=== PATIENT | female | born 1945 | race Two or more races ===

== ENCOUNTER 2016-03-31 14:28 | Emergency (ER) | payer MEDICARE, MEDICAID ==
--- NOTE | 2016-03-31 14:45 | ER Document Report ---
ED Medical Screen (RME) - General Stated Complaint: ARM PAIN Time seen by provider: 14:42 Mode of Arrival: Ambulatory Information source: Patient Notes: 70 yo female presents to ed for pain in the right arm upper arm. she took lavastatin and asa and the pain is gone in upper arm and her right had feels cold. TRAVEL OUTSIDE OF THE [place] IN LAST 30 DAYS: No - HPI Onset: This afternoon Onset/Duration: Sudden, Better Quality of pain: Burning - was a 4 now a 2 Severity: Moderate Pain Level: 2 Associated Symptoms: Other - cold and numbness to right hand Exacerbated by: Denies Relieved by: Denies Similar symptoms previously: No Recently seen / treated by doctor: No - Related Data Smoking: Non-smoker Frequency of alcohol use: Occasional Drug Abuse: None Allergies/Adverse Reactions: No Known Allergies Allergy (Unverified 06/29/12 20:48) Past Medical History - Past Medical History Cardiac Medical History: Reports: Hx Atrial Fibrillation, Hx Hypercholesterolemia GI Medical History: Reports: Hx Hiatal Hernia Past Surgical History: Reports: Hx Hysterectomy - Immunizations Hx Diphtheria, Pertussis, Tetanus Vaccination: Yes Physical Exam - Vital signs Vitals: Temp Pulse Resp BP Pulse Ox 97.4 F 88 18 134/76 H 97 03/31/16 14:38 03/31/16 14:38 03/31/16 14:38 03/31/16 14:38 03/31/16 14:38 Course - Vital Signs Vital signs: Temp Pulse Resp BP Pulse Ox 97.4 F 88 18 134/76 H 97 03/31/16 14:38 03/31/16 14:38 03/31/16 14:38 03/31/16 14:38 03/31/16 14:38
[2016-03-31 15:16] LABS: ABSOLUTE BASOPHILS # (AUTO) 0.1 10^3/uL (0.0-0.2); ABSOLUTE EOSINOPHILS # (AUTO) 0.1 10^3/uL (0.0-0.6); ABSOLUTE LYMPHOCYTES (AUTO) 1.7 10^3/uL (0.5-4.7); ABSOLUTE MONOCYTES (AUTO) 0.7 10^3/uL (0.1-1.4); ABSOLUTE NEUT (AUTO) 5.3 10^3/uL (1.7-8.2); BASOPHILS % (AUTO) 0.7 % (0-2); EOSINOPHILS % (AUTO) 1.1 % (0-6); HEMATOCRIT 44.8 % (36.0-47.0); HEMOGLOBIN 15.4 g/dL (12.0-15.5); HGB HCT DIFFERENCE 1.4; LYMPHOCYTES % (AUTO) 21.8 % (13-45); MEAN CORPUSCULAR HEMOGLOBIN 30.7 pg (27.0-33.4); MEAN CORPUSCULAR HGB CONC 34.4 g/dL (32.0-36.0); MEAN CORPUSCULAR VOLUME 89 fl (80-97); MONOCYTES % (AUTO) 8.5 % (3-13); RED BLOOD COUNT 5.02 10^6/uL (3.72-5.28); RED CELL DISTRIBUTION WIDTH 12.9 % (11.5-14.0); SEGMENTED NEUTROPHILS % (AUTO) 67.9 % (42-78); WHITE BLOOD COUNT 7.8 10^3/uL (4.0-10.5)
[2016-03-31 15:47] LABS: ALANINE AMINOTRANSFERASE 31 U/L (9-52); ALBUMIN 4.8 g/dL (3.5-5.0); ALKALINE PHOSPHATASE 87 U/L (38-126); ANION GAP 12 (5-19); ASPARTATE AMINO TRANSFERASE 29 U/L (14-36); BILIRUBIN,TOTAL 0.9 mg/dL (0.2-1.3); BLOOD UREA NITROGEN 20 mg/dL (7-20); CALCIUM 10.3 mg/dL (8.4-10.2); CARBON DIOXIDE 29 mmol/L (22-30); CHLORIDE 103 mmol/L (98-107); CREATINE KINASE 44 U/L (30-135); CREATININE RESULT 0.79 mg/dL (0.52-1.25); GLUCOSE 100 mg/dL (75-110); POTASSIUM 4.2 mmol/L (3.6-5.0); SODIUM 144.2 mmol/L (137-145); TOTAL PROTEIN 7.4 g/dL (6.3-8.2)
[2016-03-31 15:57] LABS: TROPONIN I < 0.012 ng/mL
--- NOTE | 2016-03-31 18:17 | ER Document Report ---
ED General - General Chief Complaint: Arm Pain Stated Complaint: ARM PAIN Time seen by provider: 17:00 Mode of Arrival: Ambulatory Information source: Patient Notes: 70-year-old female with a history of atrial fibrillation that presents to the emergency room with right arm pain. Patient states she's been preparing for a holiday dinner is been doing a lot of work with her hands and states she's been having some right upper extremity pain. She denies weakness. She states that her hand felt cold earlier but feels fine now. TRAVEL OUTSIDE OF THE [place] IN LAST 30 DAYS: No - HPI Onset: This morning Onset/Duration: Gradual Quality of pain: Dull Severity: Mild Pain Level: 0 Associated symptoms: denies: Chills, Nonproductive cough, Productive cough, Fever, Shortness of breath Exacerbated by: Denies Relieved by: Denies Similar symptoms previously: No Recently seen / treated by doctor: No - Related Data Allergies/Adverse Reactions: No Known Allergies Allergy (Unverified 06/29/12 20:48) Past Medical History - General Information source: Patient - Social History Smoking Status: Never Smoker Chew tobacco use (# tins/day): No Frequency of alcohol use: None Drug Abuse: None Lives with: Family Family History: Reviewed & Not Pertinent Patient has suicidal ideation: No Patient has homicidal ideation: No - Past Medical History Cardiac Medical History: Reports: Hx Atrial Fibrillation, Hx Hypercholesterolemia Pulmonary Medical History: Reports: None EENT Medical History: Reports: None Neurological Medical History: Reports: None Endocrine Medical History: Reports: None Renal/ Medical History: Reports: None Malignancy Medical History: Reports: None GI Medical History: Reports: Hx Hiatal Hernia Musculoskeltal Medical History: Reports None Skin Medical History: Reports None Psychiatric Medical History: Reports: None Traumatic Medical History: Reports: None Infectious Medical History: Reports: None Past Surgical History: Reports: Hx Hysterectomy - Immunizations Hx Diphtheria, Pertussis, Tetanus Vaccination: Yes Hx Pneumococcal Vaccination: 06/30/12 Review of Systems - Review of Systems Constitutional: denies: Chills, Fever EENT: No symptoms reported Cardiovascular: No symptoms reported Respiratory: No symptoms reported Gastrointestinal: No symptoms reported Genitourinary: No symptoms reported Female Genitourinary: No symptoms reported Musculoskeletal: See HPI Skin: See HPI Hematologic/Lymphatic: No symptoms reported Neurological/Psychological: No symptoms reported Physical Exam - Vital signs Vitals: Temp Pulse Resp BP Pulse Ox 97.4 F 88 18 134/76 H 97 03/31/16 14:38 03/31/16 14:38 03/31/16 14:38 03/31/16 14:38 03/31/16 14:38 Notes: Physical exam: GENERAL: 20-year-old female, alert and oriented 3, ambulating around the room without difficulty. Patient states her symptoms are resolved. HEAD: Atraumatic, normocephalic. EYES: Pupils equal round and reactive to light, extraocular movements intact, sclera anicteric, conjunctiva are normal. ENT: TMs normal, nares patent, oropharynx clear without exudates. Moist mucous membranes. NECK: Normal range of motion, supple without lymphadenopathy or JVD. LUNGS: Breath sounds clear to auscultation bilaterally and equal. No wheezes rales or rhonchi. HEART: Regular rate and rhythm without murmurs, rubs or gallops. ABDOMEN: Soft, nontender, normoactive bowel sounds. No guarding, no rebound. No masses appreciated. EXTREMITIES: Normal range of motion, no pitting or edema. As far as the right upper extremity: Patient has good cap refill: There is no cyanosis. She has good sensation and a good radial pulse. There is no pallor to the extremity and it is not cool. The temperature seems about the same. The symptoms have resolved completely. NEUROLOGICAL: Cranial nerves II through XII grossly intact. Normal speech. Motor 5 over 5 upper and lower, sensory grossly intact, cerebellar good (finger to nose)., Reflexes symmetrical. Normal gait. PSYCH: Normal mood, normal affect. SKIN: Warm, Dry, normal turgor, no rashes or lesions noted. Course - Re-evaluation Re-evalutation: 03/31/16 23:05 About a long conversation with the patient. The concern is that she is on atrial fibrillation is not wanted anything stronger than aspirin for blood thinning. I told her she is at risk of strokes an embolic phenomenon's. And in fact the concern I had was that she had possibly had an embolic phenomenon to the right upper extremity. However, her symptoms seemed to resolve. I don' t see any evidence clinically of arterial insufficiency. A Doppler study was done of the right upper extremity. It turned out to be an official venous study , but I spoke directly with the conveyor technician who said she could see arterial flow the hallway. I've discussed this with Dr. Browning (she has been seen in his office and she has an appointment in April) and he said he will follow-up with the patient. I've advised the patient to call Dr. Browning's office to get seen earlier than April. I gave her signs and symptoms to return for. - Vital Signs Vital signs: Temp Pulse Resp BP Pulse Ox 97.7 F 83 20 152/71 H 98 03/31/16 18:24 03/31/16 18:24 03/31/16 18:24 03/31/16 18:24 03/31/16 18:24 - Laboratory Result Diagrams: 03/31/16 14:55 03/31/16 14:55 Laboratory results interpreted by me: 03/31/16 14:55 Calcium 10.3 H - Diagnostic Test Radiology reviewed: Image reviewed, Reports reviewed - Chest x-ray clear Discharge - Discharge Clinical Impression: arm pain Condition: Stable Disposition: HOME, SELF-CARE Additional Instructions: Recommendations: Continue current medicines, Can try heating pads, can take aspirin for the pain As we discussed: Return to the emergency room if you develop any worsening pain in the arm, if the fingers turned blue or pale or cold. Follow-up with Dr. Browning's office as planned. Referrals: BRENDA PETERSEN MD [ACTIVE STAFF] - Follow up as needed
[2016-03-31 18:26] VITALS: BP 152/71
--- NOTE | 2016-03-31 19:52 | EKG REPORT ---
SEVERITY:- ABNORMAL ECG - ATRIAL FIBRILLATION, V-RATE 64-93 LEFT AXIS DEVIATION LVH WITH SECONDARY REPOLARIZATION ABNORMALITY : Confirmed by: Helder Bentley 31-Mar-2016 19:51:24
--- NOTE | 2016-04-01 12:46 | XCELERA REPORT ---
[address] [address] Upper Extremity Venous Evaluation Name: JACK IRELAND Age: 70 yrs Gender: Female : 1945 Patient Status: Emergency Patient Location: ER Study Date: 03/31/2016 05:24 PM Procedure: Unilateral duplex scan of the right upper extremity veins was performed, including responses to compression and other maneuvers. Reason For Study: right arm pain, atrial fibrillation Ordering Physician: ZACH URIARTE Performed By: Mónica Ghotra Right Side Venous Evaluation Normal vessel filling wall to wall, compression and augmentation as well as Colour flow down to the forearm veins. Critical Findings Called in to the ER at about 1900. Interpretation Summary No duplex evidence of DVT or obstruction in the right upper extremity. : ZACH URIARTE > Maciel Patino
== END 2016-03-31 18:24 | disposition home or self-care (01) ==
LOC: ER 14:28
DX: M79.601 Pain in right arm (principal); I48.91 Unspecified atrial fibrillation; E78.00 Pure hypercholesterolemia, unspecified; Z90.710 Acquired absence of both cervix and uterus
CPT/HCPCS: 36415; 71020; 80053; 82550; 82553; 84484; 85025; 93005; 93010; 93971; 99284

== ENCOUNTER 2018-04-14 04:13 | Emergency (ER) | payer MEDICARE, MEDICAID ==
--- NOTE | 2018-04-14 04:59 | ER Document Report ---
ED General - General Mode of Arrival: Ambulatory Information source: Patient TRAVEL OUTSIDE OF THE [place] IN LAST 30 DAYS: No <SHANDRA ERICKSON - Last Filed: 04/14/18 05:24> <JOANNA KELLY - Last Filed: 04/14/18 06:33> - General Chief Complaint: Slurred Speech Stated Complaint: FALL Time Seen by Provider: 04/14/18 04:26 Notes: Patient is a 72 year old female with afib presents to the emergency department accompanied by daughter complaining of a fall and dysphagia. Daughter states the patient was going to the bathroom when she fell on the floor. She states she heard something, proceeded to check on the patient and saw the patient on her bedroom floor. She states the patient does not remember how she fell onto the floor, but shortly have she began to have difficulty finding words. She elaborates by stating it would take several seconds for the patient to say the word shoe. Daughter states the patient appears to be at baseline at this moment. Patient's PCP is Dr. Duvall. Her rug cleaner is Dr. Garcia. (SHANDRA ERICKSON) The patient's memory deficits and trouble naming objects has completely resolved by the time she is seen in the emergency room. Her daughter confirms that she is back to her baseline and nothing like she was when she first found her on the floor of the bedroom. She does not have any motor deficits, does not seem to have any cognitive deficits. It appears she had a TIA that has resolved. For this reason she is not a TPA candidate. Review of patient records shows that she was admitted here in June 2012 with a TIA, and was discharged on Coumadin. Not certain when she stopped taking Coumadin but it is been well over a year. (JOANNA KELLY) - Related Data Allergies/Adverse Reactions: No Known Allergies Allergy (Verified 04/14/18 04:16) Past Medical History - General Information source: Patient - Social History Smoking Status: Unknown if Ever Smoked Family History: Reviewed & Not Pertinent - Past Medical History Cardiac Medical History: Reports: Hx Atrial Fibrillation, Hx Hypercholesterolemia GI Medical History: Reports: Hx Hiatal Hernia Past Surgical History: Reports: Hx Hysterectomy - Immunizations Hx Diphtheria, Pertussis, Tetanus Vaccination: Yes Hx Pneumococcal Vaccination: 06/30/12 <SHANDRA ERICKSON - Last Filed: 04/14/18 05:24> Review of Systems - Review of Systems Constitutional: No symptoms reported EENT: No symptoms reported Cardiovascular: No symptoms reported Respiratory: No symptoms reported Gastrointestinal: No symptoms reported Genitourinary: No symptoms reported Female Genitourinary: No symptoms reported Musculoskeletal: No symptoms reported Skin: No symptoms reported Hematologic/Lymphatic: No symptoms reported Neurological/Psychological: See HPI -: Yes All other systems reviewed and negative <SHANDRA ERICKSON - Last Filed: 04/14/18 05:24> Physical Exam <SHANDRA ERICKSON - Last Filed: 04/14/18 05:24> - Vital signs Vitals: BP Pulse Ox 169/118 H 100 04/14/18 04:39 04/14/18 04:39 - Notes Notes: GENERAL: Alert, interacts well. No acute distress. HEAD: Normocephalic, atraumatic. No facial droop. EYES: Pupils equal, round, and reactive to light. Extraocular movements intact. ENT: Oral mucosa moist, tongue midline, no tongue deviation. TM's intacts. NECK: Full range of motion. Supple. Trachea midline. LUNGS: Clear to auscultation bilaterally, no wheezes, rales, or rhonchi. No respiratory distress. HEART: Regular rate and rhythm. No murmurs, gallops, or rubs. ABDOMEN: Soft, non-tender. Non-distended. Bowel sounds present in all 4 quadrants. EXTREMITIES: Moves all 4 extremities spontaneously. Able to perform straight leg raise with no drift. Able to hold hands in the air for several seconds with no drift. NEUROLOGICAL: Alert and oriented x3. Normal speech, daughter states speech is back to baseline, able to find words she was having difficulty with earlier. Cranial nerves II through XII grossly intact. 5/5 muscle strength bilaterally. PSYCH: Normal affect, normal mood. SKIN: Warm, dry, normal turgor. No rashes or lesions noted. (DRESHANDRA RIOS) Course - Laboratory Result Diagrams: 04/14/18 04:44 04/14/18 04:44 <SHANDRA ERICKSON - Last Filed: 04/14/18 05:24> - Laboratory Result Diagrams: 04/14/18 04:44 04/14/18 04:44 - Diagnostic Test Radiology reviewed: Image reviewed, Reports reviewed - Chest x-ray shows enlarged heart with no acute findings. CT scan of the head does not show acute findings. - EKG Interpretation by Me EKG shows normal: Sinus rhythm, [place], Intervals, QRS Complexes, ST-T Waves Rate: Normal - 85 Rhythm: A.Fib [place]/QRS: RBBB, LAHB/LAFB Voltage: Consistant with LVH - Consults Dr. Duvall Time consulted: 06:13 Consulted provider: follow-up in office - Requests the patient be started on Eliquis 5 mg twice daily and follow-up in the office on Monday. <JOANNA KELLY - Last Filed: 04/14/18 06:33> - Re-evaluation Re-evalutation: 04/14/18 06:29 I discussed the findings and Dr. Duvall's recommendations with the patient and her daughter. According to the daughter the patient did not take Coumadin after she was discharged from the hospital with her TIA in June 2012. At this time she does not want to take Eliquis. We have discussed the risks of recurrent transient ischemic attacks and or stroke, but she still declines the offer for the Eliquis. She wants to wait until she goes to see Dr. Duvall on Monday in the office to discuss taking anything besides the aspirin that she currently takes. (JOANNA KELLY) - Vital Signs Vital signs: Temp Pulse Resp BP Pulse Ox 83 22 H 161/89 H 97 04/14/18 05:00 04/14/18 06:01 04/14/18 06:01 04/14/18 06:01 - Laboratory Laboratory results interpreted by me: 04/14/18 04/14/18 04/14/18 04:44 04:44 05:04 Hgb 15.6 H Glucose 128 H Urine Blood SMALL H Discharge <SHANDRA ERICKSON - Last Filed: 04/14/18 05:24> <JOANNA KELLY - Last Filed: 04/14/18 06:33> - Discharge Clinical Impression: Transient ischemic attack, Chronic atrial fibrillation High blood pressure Qualifiers: Hypertension type: essential hypertension Qualified Code(s): I10 - Essential (p rimary) hypertension Condition: Stable Disposition: HOME, SELF-CARE Additional Instructions: Transient Ischemic Attack You have been diagnosed as having a transient ischemic attack (TIA). This is caused when an artery to the brain has been temporarily blocked. It can result in visual changes, difficulty with speech, and weakness or numbness -- usually limited to one side of the body. TIA symptoms usually resolve within an hour, but a TIA is serious, as it may be a warning sign of an impending stroke. To prevent further episodes, you may be placed on medication to reduce the possibility that your platelets will aggregate and form blood clots in the arteries that supply the brain. Usually, this includes aspirin and sometimes other platelet inhibitors. Further evaluation is often necessary to make an exact diagnosis as to where these blood clots are originating, and if anything else needs to be done to correct the problem. Call the physician or go to the emergency room if episodes occur with increasing frequency. If symptoms occur that don't go away within a few minutes, call 911. You have declined the offer to take Eliquis to reduce your risk of stroke. You have indicated that you want to wait until you see Dr. Duvall in the office on Monday to discuss this further. I have explained to you that you are at increased risk of stroke with your chronic atrial fibrillation, and known valvular disease, but you still prefer not to take anything more than the aspirin at this time. Follow-up with Dr. Duvall Monday in the office--call Monday for an ap pointment time. RETURN TO THE EMERGENCY ROOM IF ANY NEW OR WORSENING SYMPTOMS. Referrals: ISREAL DUVALL MD [Primary Care Provider] - 04/16/18 [place] Attestation: 04/14/18 06:24 I personally performed the services described in the documentation, reviewed and edited the documentation which was dictated to the scribe in my presence, and it accurately records my words and actions. (JOANNA KELLY) Scribe Documentation - Scribe Written by Bruno:: Bruno Gamble, 04/14/2018 05:02 acting as scribe for :: P[employer] <SHANDRA ERICKSON - Last Filed: 04/14/18 05:24>
[2018-04-14 05:03] LABS: ABSOLUTE BASOPHILS # (AUTO) 0.1 10^3/uL (0.0-0.2); ABSOLUTE EOSINOPHILS # (AUTO) 0.1 10^3/uL (0.0-0.6); ABSOLUTE LYMPHOCYTES (AUTO) 2.2 10^3/uL (0.5-4.7); ABSOLUTE MONOCYTES (AUTO) 0.5 10^3/uL (0.1-1.4); ABSOLUTE NEUT (AUTO) 4.6 10^3/uL (1.7-8.2); BASOPHILS % (AUTO) 0.8 % (0-2); EOSINOPHILS % (AUTO) 1.5 % (0-6); HEMATOCRIT 45.9 % (36.0-47.0); HEMOGLOBIN 15.6 g/dL (12.0-15.5); LYMPHOCYTES % (AUTO) 28.9 % (13-45); MEAN CORPUSCULAR HEMOGLOBIN 30.2 pg (27.0-33.4); MEAN CORPUSCULAR VOLUME 89 fl (80-97); MONOCYTES % (AUTO) 6.7 % (3-13); PLATELET COUNT 198 10^3/uL (150-450); RED BLOOD COUNT 5.16 10^6/uL (3.72-5.28); RED CELL DISTRIBUTION WIDTH 13.6 % (11.5-14.0); SEGMENTED NEUTROPHILS % (AUTO) 62.1 % (42-78); TOTAL CELLS COUNTED % (AUTO) 100 %; WHITE BLOOD COUNT 7.4 10^3/uL (4.0-10.5)
[2018-04-14 05:05] LABS: PARTIAL THROMBOPLASTIN TIME 28.7 SEC (23.5-35.8)
[2018-04-14 05:08] LABS: INTERNATIONAL RATION (INR) 0.95; PROTHROMBIN TIME 13.2 SEC (11.4-15.4)
--- NOTE | 2018-04-14 05:18 | RADIOLOGY REPORT (SQ) ---
EXAM DESCRIPTION: CT HEAD WITHOUT IV CONTRAST COMPLETED DATE/TME: 04/14/2018 00:00 CLINICAL HISTORY: 72 years Female, slurred speech COMPARISON: None. TECHNIQUE: No contrast. Coronal and sagittal reformat. This exam was performed according to our departmental dose-optimization program, which includes automated exposure control, adjustment of the mA and/or kV according to patient size and/or use of iterative reconstruction technique. FINDINGS: No hemorrhage or infarct. No mass, mass effect, or midline shift. White matter microangiopathy. Atherosclerosis. Brain and extra-axial structures appear otherwise intact. IMPRESSION: No acute findings.
--- NOTE | 2018-04-14 05:21 | RADIOLOGY REPORT (SQ) ---
EXAM DESCRIPTION: XR CHEST 1 VIEW COMPLETED DATE/TME: 04/14/2018 04:21 CLINICAL HISTORY: 72 years Female, stroke protocol COMPARISON: 03/31/16 NUMBER OF VIEWS/TECHNIQUE: 1/AP FINDINGS: Adequate lung volume, clear parenchyma, mildly enlarged cardiac silhouette, and intact bony thorax. Atherosclerotic vascular disease. IMPRESSION: No acute cardiopulmonary findings. Cardiac enlargement.
[2018-04-14 05:24] LABS: APPEARANCE,URINE CLEAR; BILIRUBIN,URINE NEGATIVE (NEGATIVE); COLOR,URINE COLORLESS; GLUCOSE, URINE NEGATIVE (NEGATIVE); KETONES,URINE NEGATIVE (NEGATIVE); LEUKOCYTE ESTERASE,URINE NEGATIVE (NEGATIVE); NITRITE,URINE NEGATIVE (NEGATIVE); PROTEIN,URINE NEGATIVE (NEGATIVE); URINE SPECIFIC GRAVITY 1.003; UROBILINOGEN,URINE NEGATIVE mg/dL (<2.0)
[2018-04-14 05:27] LABS: ALANINE AMINOTRANSFERASE 23 U/L (9-52); ALBUMIN 4.7 g/dL (3.5-5.0); ALKALINE PHOSPHATASE 108 U/L (38-126); ANION GAP 9 (5-19); ASPARTATE AMINO TRANSFERASE 26 U/L (14-36); BILIRUBIN,DIRECT 0.1 mg/dL (0.0-0.4); BILIRUBIN,TOTAL 0.5 mg/dL (0.2-1.3); BLOOD UREA NITROGEN 19 mg/dL (7-20); CALCIUM 9.6 mg/dL (8.4-10.2); CARBON DIOXIDE 27 mmol/L (22-30); CHLORIDE 104 mmol/L (98-107); CREATINE KINASE 37 U/L (30-135); GLUCOSE 128 mg/dL (75-110); POTASSIUM 4.1 mmol/L (3.6-5.0); SODIUM 139.5 mmol/L (137-145); TOTAL PROTEIN 7.4 g/dL (6.3-8.2)
[2018-04-14 05:39] LABS: CREATINE KINASE MB 1.12 ng/mL (<4.55)
[2018-04-14 05:41] LABS: TROPONIN I < 0.012 ng/mL
[2018-04-14 06:14] VITALS: BP 161/89
[2018-04-14] MEDS ORDERED: APIXABAN 5 MG TABLET PO ONE (06:21)
--- NOTE | 2018-04-14 18:37 | EKG REPORT ---
SEVERITY:- ABNORMAL ECG - ATRIAL FIBRILLATION, V-RATE 62-103 RBBB AND LAFB PROBABLE LEFT VENTRICULAR HYPERTROPHY : Confirmed by: Helder Bentley 14-Apr-2018 18:36:38
== END 2018-04-14 06:50 | disposition home or self-care (01) ==
LOC: ER 04:13
DX: G45.9 Transient cerebral ischemic attack, unspecified (principal); I48.2 Chronic atrial fibrillation; I10 Essential (primary) hypertension; R47.81 Slurred speech; R13.10 Dysphagia, unspecified; W19.XXXA Unspecified fall, initial encounter
CPT/HCPCS: 36415; 70450; 71045; 80053; 81001; 82550; 82553; 84484; 85025; 85610; 85730; 93005; 93010; 99285

== ENCOUNTER → 2020-01-02 | Outpatient (CLI) | payer MEDICARE, MEDICAID ==
--- NOTE | 2020-01-02 18:23 | RADIOLOGY REPORT (SQ) ---
EXAM DESCRIPTION: ARTERIAL LOWER EXTREM BILAT IMAGES COMPLETED DATE/TIME: 01/02/2020 4:32 pm REASON FOR STUDY: LLE CLAUDICATION I70.212 ATHSCL [place] ARTERIES OF EXTRM W INTRMT [place], LEFT COMPARISON: None. TECHNIQUE: Dynamic and static mayes scale and color images acquired of the lower extremity arteries. Additional selected spectral images recorded. LIMITATIONS: None. FINDINGS: RIGHT LEG: INFLOW ARTERIES: Normal, no obstruction evident. FEMORAL ARTERIES:Multiphasic waveforms. Normal, no velocity elevation to suggest focal stenosis. Norm al color Doppler evaluation. No aneurysm. POPLITEAL ARTERY:Multiphasic waveforms. Diminished velocity velocity over the course of the right pop liteal artery, approximately 130 centimeters/second, distally 50 cm/sec. Mild plaque present. No an eurysm. PATENT TIBIOPERONEAL TRUNK AND 3 VESSEL RUNOFF: Yes, patent vessels. OTHER: No other significant finding. LEFT LEG: INFLOW ARTERIES: Normal, no obstruction evident. FEMORAL ARTERIES:Multiphasic waveforms. Normal, no velocity elevation to suggest focal stenosis. Norm al color Doppler evaluation. No aneurysm. POPLITEAL ARTERY:Moderate soft plaque in the mid and distal left popliteal artery. Velocities measure 130 cm/sec in the proximal segment and diminished to 18-20 cm/sec distally. PATENT TIBIOPERONEAL TRUNK AND 3 VESSEL RUNOFF: All left runoff vessels demonstrate monophasic wavefo mir and show diminished flow: PT 20 centimeters/second, AT 40 cm/sec, dorsalis pedis 30 cm/sec. OTHER: No other significant finding. IMPRESSION: Moderate soft plaque in the mid and distal left popliteal artery. Velocities measure 13 0 cm/sec in the proximal segment and diminished to 18-20 cm/sec distally.All left runoff vessels demo nstrate monophasic waveforms and show diminished flow: PT 20 centimeters/second, AT 40 cm/sec, dorsal is pedis 30 cm/sec. Diminished velocity velocity over the course of the right popliteal artery, approximately 130 centime ters/second, distally 50 cm/sec. TECHNICAL DOCUMENTATION: JOB ID: [id number]- All Rights Reserved Reading location - IP/workstation name: [employer]
== END ==
LOC: SP 14:36
PROVIDERS: ATTEND Family Medicine
DX: I70.212 Atherosclerosis of native arteries of extremities with intermittent claudication, left leg (principal)
CPT/HCPCS: 93925